=== PATIENT | female | born 1965 ===

== ENCOUNTER 2021-07-19 09:57 | Emergency (ER) | payer BC ==
[2021-07-19] MEDS ORDERED: Cyclobenzaprine 10 MG Tab PO ONE ×2 (09:58→11:04)
[2021-07-19 10:22] VITALS: BP 132/90; PULSE 94
[2021-07-19] MEDS ORDERED: Ketorolac 30 MG/ML SDV IM ONE (11:03)
[2021-07-19] MEDS ORDERED: Cyclobenzaprine 10 MG Tab ONE (11:12)
== END 2021-07-19 11:18 | disposition home or self-care (01) ==
LOC: DL.ED 09:57
DX: M76.31 Iliotibial band syndrome, right leg (principal); M54.42 Lumbago with sciatica, left side; E11.9 Type 2 diabetes mellitus without complications; Z88.8 Allergy status to other drugs, medicaments and biological substances; Z79.82 Long term (current) use of aspirin; Z79.899 Other long term (current) drug therapy; Z72.0 Tobacco use
CPT/HCPCS: 96372; 99283; A9270; J1885

== ENCOUNTER 2021-07-19 19:22 | Inpatient (IN) | payer BC ==
[2021-07-19] MEDS ORDERED: HYDROmorphone 0.5 MG/0.5 ML Syringe IVPUSH ONE ×2 (19:46→21:38)
[2021-07-19] MEDS ORDERED: methylPREDNISolone Sodium Succinate 125 MG/2 ML SDV IVPUSH ONE (19:46)
[2021-07-19 20:34] LABS: ANION GAP 16.1 mEq/L (7-13); CHLORIDE,CL 103 mmol/L (98-107); SODIUM,NA 141 mmol/L (136-145)
[2021-07-19] MEDS ORDERED: Ondansetron 4 MG/2 ML SDV IVPUSH ONE (21:00)
[2021-07-19] MEDS ORDERED: Metoclopramide 10 MG/2 ML SDV IVPUSH ONE (21:40)
[2021-07-19] MEDS ORDERED: Albuterol/Ipratropium 3.0-0.5 MG/3 ML Neb Soln NEB PRN (23:39)
[2021-07-19] MEDS ORDERED: Ondansetron 4 MG/2 ML SDV IVPUSH PRN (23:39)
[2021-07-20] MEDS: Cyclobenzaprine 10 MG Tab PO PRN ×2 (01:30→10:02)
[2021-07-20] MEDS: Acetaminophen/oxyCODONE 325-5 MG Tab PO PRN ×3 (01:31→21:24)
[2021-07-20] MEDS: Pantoprazole 40 MG Tab.CR PO SCH ×2 (06:08→15:49)
[2021-07-20 06:39] LABS: ANION GAP 15.1 mEq/L (7-13)
[2021-07-20] MEDS ORDERED: Sodium Chloride 0.9% 1,000 ML IV SCH (08:00)
[2021-07-20] MEDS: Gabapentin 100 MG Cap PO SCH ×4 (08:59→21:25)
[2021-07-20] MEDS ORDERED: Non-Formulary Medication 1 Each (Metformin [Glucophage Xr] 500 MG Tab.Er) PO SCH (09:00)
[2021-07-20] MEDS: Lidocaine 5% 700 MG Patch TOP SCH (10:00)
[2021-07-20] MEDS: Ibuprofen 400 MG Tab PO SCH ×2 (10:00→21:22)
[2021-07-20] MEDS: Rosuvastatin 10 MG Tab PO SCH (10:02)
[2021-07-20] MEDS: Aspirin 81 MG Tab.Chew PO SCH (10:03)
[2021-07-20] MEDS: Enoxaparin 40 MG/0.4 ML Syringe SUBCUT SCH (10:03)
[2021-07-21] MEDS: Cyclobenzaprine 10 MG Tab PO PRN ×3 (04:15→20:17)
[2021-07-21] MEDS: Acetaminophen/oxyCODONE 325-5 MG Tab PO PRN ×4 (04:16→23:35)
[2021-07-21] MEDS: Pantoprazole 40 MG Tab.CR PO SCH ×2 (05:32→16:36)
[2021-07-21 07:17] LABS: ANION GAP 12.2 mEq/L (7-13)
[2021-07-21] MEDS: Rosuvastatin 10 MG Tab PO SCH (08:16)
[2021-07-21] MEDS: Aspirin 81 MG Tab.Chew PO SCH (08:17)
[2021-07-21] MEDS: Ibuprofen 400 MG Tab PO SCH ×2 (08:17→20:19)
[2021-07-21] MEDS: Gabapentin 100 MG Cap PO SCH ×3 (08:19→20:18)
[2021-07-21] MEDS: Enoxaparin 40 MG/0.4 ML Syringe SUBCUT SCH (08:20)
[2021-07-21] MEDS: Lidocaine 5% 700 MG Patch TOP SCH (08:20)
[2021-07-21] MEDS: Ergocalciferol (Vitamin D2) 1.25 MG Cap PO SCH (08:39)
[2021-07-21] MEDS: METFORMIN 500 MG PO SCH (11:51)
[2021-07-22] MEDS: Cyclobenzaprine 10 MG Tab PO PRN (04:43)
[2021-07-22] MEDS: Acetaminophen/oxyCODONE 325-5 MG Tab PO PRN ×3 (04:46→15:27)
[2021-07-22] MEDS: Pantoprazole 40 MG Tab.CR PO SCH ×2 (05:54→15:28)
[2021-07-22 06:59] LABS: ANION GAP 12.5 mEq/L (7-13); CHLORIDE,CL 104 mmol/L (98-107); SODIUM,NA 142 mmol/L (136-145)
[2021-07-22] MEDS: Rosuvastatin 10 MG Tab PO SCH (08:33)
[2021-07-22] MEDS: Aspirin 81 MG Tab.Chew PO SCH (08:34)
[2021-07-22] MEDS: Ergocalciferol (Vitamin D2) 1.25 MG Cap PO SCH (08:34)
[2021-07-22] MEDS: Ibuprofen 400 MG Tab PO SCH ×2 (08:35→20:24)
[2021-07-22] MEDS: Enoxaparin 40 MG/0.4 ML Syringe SUBCUT SCH (08:36)
[2021-07-22] MEDS: Lidocaine 5% 700 MG Patch TOP SCH (08:38)
[2021-07-22] MEDS: METFORMIN 500 MG PO SCH (08:46)
[2021-07-22] MEDS: Gabapentin 100 MG Cap PO SCH ×3 (08:47→20:22)
[2021-07-22] MEDS: Sodium Chloride 0.9% 10 ML Syringe FLUSH PRN ×2 (12:19→20:21)
[2021-07-22] MEDS: HYDROmorphone 0.5 MG/0.5 ML Syringe IVPUSH PRN (12:19)
[2021-07-22] MEDS: Cyclobenzaprine 10 MG Tab PO SCH ×2 (14:19→22:30)
[2021-07-23] MEDS: Acetaminophen/oxyCODONE 325-5 MG Tab PO PRN ×4 (04:57→18:14)
[2021-07-23] MEDS: Sodium Chloride 0.9% 10 ML Syringe FLUSH PRN ×2 (05:03→18:15)
[2021-07-23] MEDS: Cyclobenzaprine 10 MG Tab PO SCH ×3 (06:29→21:18)
[2021-07-23] MEDS: Pantoprazole 40 MG Tab.CR PO SCH ×2 (06:29→15:38)
[2021-07-23] MEDS: Aspirin 81 MG Tab.Chew PO SCH (09:33)
[2021-07-23] MEDS: Gabapentin 100 MG Cap PO SCH ×3 (09:34→21:18)
[2021-07-23] MEDS: Ibuprofen 400 MG Tab PO SCH ×2 (09:34→21:17)
[2021-07-23] MEDS: Rosuvastatin 10 MG Tab PO SCH (09:34)
[2021-07-23] MEDS: Enoxaparin 40 MG/0.4 ML Syringe SUBCUT SCH (09:36)
[2021-07-23] MEDS: Ergocalciferol (Vitamin D2) 1.25 MG Cap PO SCH (09:36)
[2021-07-23] MEDS: METFORMIN 500 MG PO SCH (09:37)
[2021-07-23] MEDS: Lidocaine 5% 700 MG Patch TOP SCH (09:39)
[2021-07-23] MEDS: Polyethylene Glycol 3350 Powder 17 GM Packet PO PRN (10:06)
[2021-07-24] MEDS: Sodium Chloride 0.9% 10 ML Syringe FLUSH PRN (01:12)
[2021-07-24] MEDS: Acetaminophen/oxyCODONE 325-5 MG Tab PO PRN ×5 (01:12→17:29)
[2021-07-24] MEDS: Pantoprazole 40 MG Tab.CR PO SCH ×2 (05:55→16:22)
[2021-07-24] MEDS: Cyclobenzaprine 10 MG Tab PO SCH ×3 (05:55→21:37)
[2021-07-24] MEDS: METFORMIN 500 MG PO SCH ×2 (09:00→17:30)
[2021-07-24] MEDS: Enoxaparin 40 MG/0.4 ML Syringe SUBCUT SCH (09:13)
[2021-07-24] MEDS: Aspirin 81 MG Tab.Chew PO SCH (09:14)
[2021-07-24] MEDS: Ibuprofen 400 MG Tab PO SCH (09:14)
[2021-07-24] MEDS: Rosuvastatin 10 MG Tab PO SCH (09:14)
[2021-07-24] MEDS: Ergocalciferol (Vitamin D2) 1.25 MG Cap PO SCH (09:16)
[2021-07-24] MEDS: Gabapentin 100 MG Cap PO SCH (09:16)
[2021-07-24] MEDS: Lidocaine 5% 700 MG Patch TOP SCH (09:20)
[2021-07-24] MEDS: Polyethylene Glycol 3350 Powder 17 GM Packet PO PRN (09:26)
[2021-07-24] MEDS: HYDROmorphone 0.5 MG/0.5 ML Syringe IVPUSH PRN (09:39)
[2021-07-24] MEDS ORDERED: Dexamethasone 4 MG Tab PO ONE (12:45)
[2021-07-24] MEDS: Gabapentin 300 MG Cap PO SCH ×2 (16:22→21:38)
[2021-07-24] MEDS: Bisacodyl 5 MG Tab PO PRN (17:30)
[2021-07-24] MEDS: Dexamethasone 4 MG Tab PO SCH (21:37)
[2021-07-24] MEDS: oxyCODONE ER 10 MG TAB.ER PO SCH (21:38)
[2021-07-24] MEDS: Naproxen 500 MG Tab PO SCH (21:38)
[2021-07-25] MEDS: Pantoprazole 40 MG Tab.CR PO SCH ×2 (06:12→16:56)
[2021-07-25] MEDS: Cyclobenzaprine 10 MG Tab PO SCH ×3 (06:12→22:06)
[2021-07-25] MEDS: oxyCODONE ER 10 MG TAB.ER PO SCH ×2 (09:32→20:55)
[2021-07-25] MEDS: Rosuvastatin 10 MG Tab PO SCH (09:33)
[2021-07-25] MEDS: Gabapentin 300 MG Cap PO SCH ×3 (09:33→20:56)
[2021-07-25] MEDS: Dexamethasone 4 MG Tab PO SCH ×2 (09:33→20:56)
[2021-07-25] MEDS: Ergocalciferol (Vitamin D2) 1.25 MG Cap PO SCH (09:33)
[2021-07-25] MEDS: Lidocaine 5% 700 MG Patch TOP SCH (09:34)
[2021-07-25] MEDS: Naproxen 500 MG Tab PO SCH ×2 (09:34→20:55)
[2021-07-25] MEDS: Enoxaparin 40 MG/0.4 ML Syringe SUBCUT SCH (09:34)
[2021-07-25] MEDS: Aspirin 81 MG Tab.Chew PO SCH (09:34)
[2021-07-25] MEDS: Polyethylene Glycol 3350 Powder 17 GM Packet PO PRN (09:49)
[2021-07-25] MEDS: Bisacodyl 5 MG Tab PO PRN (09:49)
[2021-07-25] MEDS ORDERED: Lactulose Soln 10 GM/15 ML 30 ML UD Cup PO PRN (10:32)
[2021-07-25] MEDS: METFORMIN 500 MG PO SCH (18:08)
[2021-07-25] MEDS: Acetaminophen/oxyCODONE 325-5 MG Tab PO PRN (18:42)
[2021-07-25] MEDS: Sodium Chloride 0.9% 10 ML Syringe FLUSH PRN (20:58)
[2021-07-26] MEDS: Acetaminophen/oxyCODONE 325-5 MG Tab PO PRN ×3 (02:11→12:30)
[2021-07-26] MEDS: Pantoprazole 40 MG Tab.CR PO SCH (06:17)
[2021-07-26] MEDS: Cyclobenzaprine 10 MG Tab PO SCH ×2 (06:17→14:01)
[2021-07-26] MEDS: Sodium Chloride 0.9% 10 ML Syringe FLUSH PRN (08:41)
[2021-07-26] MEDS: oxyCODONE ER 10 MG TAB.ER PO SCH (08:42)
[2021-07-26] MEDS: Aspirin 81 MG Tab.Chew PO SCH (08:42)
[2021-07-26] MEDS: Ergocalciferol (Vitamin D2) 1.25 MG Cap PO SCH (08:42)
[2021-07-26] MEDS: Dexamethasone 4 MG Tab PO SCH (08:42)
[2021-07-26] MEDS: Rosuvastatin 10 MG Tab PO SCH (08:42)
[2021-07-26] MEDS: Naproxen 500 MG Tab PO SCH (08:42)
[2021-07-26] MEDS: Gabapentin 300 MG Cap PO SCH ×2 (08:42→14:01)
[2021-07-26] MEDS: Enoxaparin 40 MG/0.4 ML Syringe SUBCUT SCH (08:43)
[2021-07-26] MEDS: Lidocaine 5% 700 MG Patch TOP SCH (08:43)
[2021-07-26 12:21] VITALS: BP 141/60; PULSE 90
== END 2021-07-26 15:20 | DRG 347 ==
LOC: DL.ED 19:22 → DL.MS 22:00
PROVIDERS: ADMIT Internal Medicine; ATTEND Internal Medicine
DX: M51.16 Intervertebral disc disorders with radiculopathy, lumbar region (principal); M47.26 Other spondylosis with radiculopathy, lumbar region; M48.061 Spinal stenosis, lumbar region without neurogenic claudication; E66.01 Morbid (severe) obesity due to excess calories; E55.9 Vitamin D deficiency, unspecified; E11.65 Type 2 diabetes mellitus with hyperglycemia; N17.9 Acute kidney failure, unspecified; Z20.822 Contact with and (suspected) exposure to COVID-19; F17.210 Nicotine dependence, cigarettes, uncomplicated; E04.1 Nontoxic single thyroid nodule; I10 Essential (primary) hypertension; E78.5 Hyperlipidemia, unspecified; F43.9 Reaction to severe stress, unspecified; D35.02 Benign neoplasm of left adrenal gland; D72.829 Elevated white blood cell count, unspecified; I71.4 Abdominal aortic aneurysm, without rupture; Z79.899 Other long term (current) drug therapy; Z90.49 Acquired absence of other specified parts of digestive tract; Z79.82 Long term (current) use of aspirin; Z79.84 Long term (current) use of oral hypoglycemic drugs; Z68.35 Body mass index [BMI] 35.0-35.9, adult
CPT/HCPCS: 36415; 72131; 72148; 80048; 80053; 81003; 82306; 83605; 83735; 85025; 96374; 96375; 96376; 97110-GP; 97116-GP; 97140-GP; 97161-GP; 97165-GO; 97530-GO; 97535-GO; 99222; 99232; 99238; 99284-25; A9270-GY; J1170; J1650; J2405; J2930; J3490; J7030; J8540; U0002